=== PATIENT | male | born 1990 | race Caucasian/White ===

== ENCOUNTER → 2016-11-10 | Day surgery (SDC) | payer OTHER ==
[~2016-11-10] MED LIST: FENTANYL PF 100 MCG/2 ML VIAL. IV PRN; FINA5TAB4 PO; IV RINGERS,LACTATED 1000ML 1,000 ML IV SCH; LIDOCAINE 1% 1 ML SYRINGE. ID PRN; LIDOCAINE 2% PF Vial for OR 5 ML VIAL. ONE; MIDAZOLAM HCL 2 MG/2 ML VIAL. IV PRN; OMEP40CA5 PO; PROPOFOL 40 ML IV ONE
--- NOTE | 2016-11-10 10:35 | PDOC1 ---
History and Physical Date of Admission Date of Admission DATE: 11/10/16 TIME: 10:29 Source Source: Chart review, Patient History of Present Illness History of Present Illness 26 y/o male with history of GERD, high-grade. Recent increase in symptoms. On PPI BID for past 4 days. Question of Em's on last EGD, but negative biopsies. Repeat EGD now due to "refractory" symptoms. Some IBS-like symptoms in past. No other GI history. Past Medical History Past Medical History [facility] w/o sequelae Past Surgical History Past Surgical History: Appendectomy Family History Family History: Cancer (esophageal), Diabetes, Hypertension, Other (Crohn;s disease) Social History Smoke: No ALCOHOL: occassional Drugs: None Current Medications Current Medications Active Scripts Active Reported Finasteride 5 Mg Tablet 1 Mg PO DAILY Omeprazole 40 Mg Capsule.dr 40 Mg PO BID Allergies Allergies: Coded Allergies: No Known Drug Allergies (Unverified , 11/10/16) ROS Review of System 10-point review negative. Physical Exam General: Alert, Oriented X3, Cooperative, No acute distress Lungs: Clear to auscultation, Normal air movement Heart: S1S2, RRR, no gallops, no murmurs Abdomen: Normal bowel sounds, Soft, No tenderness, No hepatosplenomegaly, No masses Rectal Exam: not examined Extremities: No cyanosis, No edema Skin: No significant lesion Neuro: Normal speech, Strength at 5/5 X4 ext, Normal tone, Sensation intact, Cranial nerves 3-12 NL, Reflexes 2+ Psych/Mental Status: Mental status NL, Mood NL VTE Prophylaxis Ordered VTE Prophylaxis Devices: No VTE Pharmacological Prophylaxi: No Assessment/Plan Assessment/Plan IMP: "Refractory" GERD/questions of Em's. PLAN: EGD. DIDIER RICHARDSON MD Nov 10, 2016 10:35
[2016-11-10 12:03] VITALS: BP 115/72
--- NOTE | 2016-11-11 11:10 | PATHOLOGY ---
PATHOLOGY REPORT * * * * * * * * FINAL DIAGNOSIS: Esophageal biopsy, distal esophagus:- Segments of hyperplastic squamous esophageal mucosa and gastric mucosa showing chronic inflammation. COMMENT: Sections of the distal esophageal biopsy reveal segments of hyperplastic squamous esophageal mucosa and gastric mucosa showing mild to moderate chronic inflammation. The findings are consistent with reflux. There is no evidence of Em's change, dysplasia, or malignancy. (JPM:all; d/t: 11/11/2016) REPORT ELECTRONICALLY SIGNED BY: Robinson Michel M.D. DATE/TIME: 11/11/2016 11:08 * * * * * * * * GROSS PATHOLOGY: Received in formalin labeled "Jake Sutherland and distal esophagus bx," are 2 segments of delcid soft tissue measuring 0.8 x 0.2 x 0.2 cm in aggregate dimensions and measuring 0.3 and 0.5 cm in maximum dimension. The specimen is submitted entirely in cassette A1. (TTL; 11/10/2016) INITIAL CPT CODE(S): A; 56236 Professional services performed by [facility] [place] [address] Technical services performed by [facility] at [address] [place] [address] [address], [place] [address]. SPECIMEN(S) RECEIVED: A.Distal esophagus biopsy CLINICAL HISTORY: GERD PATIENT: JAKE SUTHERLAND /AGE: 301/27/1990 (Age: 26) PATIENT #: [id number] ALT CASE #: SPECIMEN COLLECTION DATE: 11/10/2016 SPECIMEN RECEIVED DATE: 11/10/2016 [facility] - [address] [place] [address] - PHONE: [phone] * * * END OF REPORT * * *
== END | disposition home or self-care (01) ==
LOC: SURG 09:56
PROVIDERS: ATTEND Internal Medicine Gastroenterology
DX: K20.8 Other esophagitis (principal); K22.70 Barrett's esophagus without dysplasia; Z90.49 Acquired absence of other specified parts of digestive tract; F10.99 Alcohol use, unspecified with unspecified alcohol-induced disorder
CPT/HCPCS: 43239; 88305; J2704